=== PATIENT | female | born 1995 | race Caucasian/White ===

== ENCOUNTER 2020-01-01 19:51 | Emergency (ER) | payer OTHER ==
[~2020-01-01] VITALS: Ht 157.5 cm; Wt 49.9 kg
[~2020-01-01 19:51] MED LIST: CEPH-569
== END 2020-01-01 20:14 | disposition home or self-care (01) ==
LOC: ER 19:54
DX: Z03.818 Encounter for observation for suspected exposure to other biological agents ruled out (principal)
CPT/HCPCS: 99283; U0003